=== PATIENT | female | born 1960 | race Caucasian/White ===

== ENCOUNTER 2017-02-19 11:49 | Emergency (ER) | payer BC | END 2017-02-19 12:39 | disposition home or self-care (01) | LOC: NAV ERS 11:49 | DX: M54.32 Sciatica, left side (principal); F17.210 Nicotine dependence, cigarettes, uncomplicated; R03.0 Elevated blood-pressure reading, without diagnosis of hypertension; E11.9 Type 2 diabetes mellitus without complications; J45.909 Unspecified asthma, uncomplicated | CPT/HCPCS: 99283 ==

== ENCOUNTER 2020-12-12 11:31 | Emergency (ER) | payer BC, SELFPAY ==
[2020-12-12] MEDS ORDERED: Lidocaine 1% w/Epinephrine 1:100K 20 ML VIAL ONE (12:02)
== END 2020-12-12 12:40 | disposition home or self-care (01) ==
LOC: NAV ERS 11:31
DX: N75.1 Abscess of Bartholin's gland (principal); N75.0 Cyst of Bartholin's gland; E11.9 Type 2 diabetes mellitus without complications; J45.909 Unspecified asthma, uncomplicated; F17.210 Nicotine dependence, cigarettes, uncomplicated
CPT/HCPCS: 56420

== ENCOUNTER 2020-12-16 13:11 | Emergency (ER) | payer BC, SELFPAY ==
[2020-12-16] MEDS ORDERED: HYDROcodone/Acetaminophen 5/325 mg Tablet ONE (13:50)
== END 2020-12-16 13:55 | disposition home or self-care (01) ==
LOC: NAV ERS 13:11
DX: Z48.817 Encounter for surgical aftercare following surgery on the skin and subcutaneous tissue (principal); F17.210 Nicotine dependence, cigarettes, uncomplicated; E11.9 Type 2 diabetes mellitus without complications
CPT/HCPCS: 99282

== ENCOUNTER 2020-12-26 19:19 | Emergency (ER) | payer BC | END 2020-12-26 20:00 | disposition home or self-care (01) | LOC: NAV ERS 19:19 | DX: K59.00 Constipation, unspecified (principal); E11.9 Type 2 diabetes mellitus without complications; F17.210 Nicotine dependence, cigarettes, uncomplicated | CPT/HCPCS: 74018 ==